=== PATIENT | female | born 1980 | race Caucasian/White ===

== ENCOUNTER → 2019-09-19 18:17 | Outpatient (CLI) | payer OTHER, SELFPAY ==
--- NOTE | 2019-09-19 18:23 | DI.MRI.S_ITS ---
PROCEDURE: MR HAND LT WO CON INDICATIONS: PAIN IN LEFT HAND TECHNIQUE: Noncontrast coronal T1 spin echo and T2 fast spin echo with fat saturation, axial proton density fast spin echo and T2 fast spin echo with fat saturation, sagittal T1 spin echo and STIR through the hand and fingers. COMPARISON: None. FINDINGS: Image quality: There is motion artifact limiting evaluation Bones: The bones are normally aligned. There is a small region of bone marrow edema along the dorsal aspect of the 3rd metatarsal head. The findings are suggestive of a bone contusion without a discrete fracture identified. Interphalangeal joints: The accessory and proper collateral ligaments appear intact. The volar plate plates appear grossly intact. The extensor central slips appear intact on sagittal images. Metacarpophalangeal joints: There is mild edema along the dorsal radial aspects of the 2nd and 3rd metacarpophalangeal joints with slight attenuation of the dorsal capsule. The findings are compatible with mild to capsular sprains. The accessory and proper collateral ligaments appear intact, as well as the volar plate and adjacent deep transverse metacarpal ligaments. The sagittal bands of the extensor sunshine appear normal. Extensor apparatus: The central slips insert normally on the middle phalangeal base. The conjoint and terminal tendons insert normally on the distal phalangeal bases. More proximal portions of the extensor tendons also appear normal. Flexor apparatus: The flexor digitorum superficialis and profundus tendons both appear intact. All annular and cruciform pulleys appear intact, without adjacent soft tissue edema. Soft tissues: There is mild edema within the 1st and 2nd dorsal interosseous muscles adjacent to the 2nd and 3rd metacarpophalangeal joints suggestive of mild strains. No intramuscular masses identified. No ganglion cysts. IMPRESSION: 1. Mild edema at the dorsal radial aspect of the 2nd and 3rd metacarpophalangeal joints compatible with mild sprains of the dorsal capsules. There are associated mild strains of the 1st and 2nd dorsal interosseous muscles. 2. Small region of bone marrow edema in the 3rd metacarpal head dorsally likely representing a bone contusion without a discrete fracture identified. Dictated by: Eliecer Streeter M.D. on 09/20/2019 at 9:38 Approved by: Eliecer Streeter M.D. on 09/20/2019 at 9:56
== END ==
PROVIDERS: Visit Provider Physician Assistant
DX: M79.642 Pain in left hand (principal); M25.442 Effusion, left hand; S66.812A Strain of other specified muscles, fascia and tendons at wrist and hand level, left hand, initial encounter
CPT/HCPCS: 73218

== ENCOUNTER → 2021-02-18 14:48 | Outpatient (CLI) | payer OTHER, SELFPAY ==
--- NOTE | 2021-02-18 14:51 | DI.ECHO.S_ITS ---
[facility] +---------+ Hospital +---------+ : : [address] : [place] : : : : [id number] : : : : Phone: [phone]+ Echocardiogram Report + + :Name: FAUSTINO BRICE Study Date: 02/18/2021 Height: 63 in : :[facility] ReadingLocation: Weight: 175 lb : : Gender: Female BSA: 1.8 m2 : :: 1980 Age: 41 yrs BP: 129/94 mmHg: :Reason For Study: GENERAL ENCOUNTER FOR ADULT MEDICAL : :EXAMINATION : :Ordering Physician: RADHA, : :ABDOULAYE Performed By: Vidya Moscoso : :Referring: ABDOULAYE GARCIA : + + Interpretation Summary Normal echo study. Procedure: A two-dimensional transthoracic echocardiogram with color flow and Doppler was performed. The study quality was technically adequate. There is no prior echocardiogram noted for this patient. The patient was in sinus rhythm with heart rates between 69-86 bpm during the exam. Left Ventricle: The left ventricle is normal in size and wall thickness. The ejection fraction is estimated to be 60-65%. Left ventricular wall motion is normal. Diastolic parameters suggest probable normal left ventricular diastolic function and normal filling pressures. Right Ventricle: The right ventricle is normal in size and function. Atria: The left atrial size is normal. Right atrial size is normal. There is no Doppler evidence for an interatrial shunt. Mitral Valve: The mitral valve is normal in structure and function. There is no mitral regurgitation noted. Aortic Valve: The aortic valve is trileaflet. The aortic valve opens well. There is no aortic valve stenosis. No aortic regurgitation is present. Tricuspid Valve: The tricuspid valve is normal in structure and function. Pulmonary artery pressures cannot be estimated because of the lack of a measurable TR jet velocity but the IVC suggests a CVP of around 3 mmHg. No tricuspid regurgitation. Pulmonic Valve: The pulmonic valve is not well seen, but is grossly normal. There is trace pulmonic regurgitation. Great Vessels: The aortic root is normal size. The dimensions of the ascending aorta are normal. The IVC is of normal diameter and collapses greater than 50% with a sniff. This suggests a low right atrial pressure of 3 mm Hg. Pericardium/ Pleura There is no pericardial effusion. There is no pleural effusion. MMode/2D Measurements & Calculations LVIDd: 4.8 cm LVOT diam: 2.1 cm LVIDs: 3.1 cm Ao root diam: 3.1 cm FS: 34.9 % asc Aorta Diam: 3.1 cm EPSS: 0.82 cm Ao Arch Diam (Prox Trans): 2.5 cm IVSd: 0.86 cm LVPWd: 0.80 cm LV lieberman. diameter/BSA (cm/m^2): 2.6 LV sys. diameter/BSA (cm/m^2): 1.7 LA A2 area: 22.1 cm2 RA long axis: 4.9 cm LA A4 area: 20.6 cm2 RA area: 16.1 cm2 LA length (vol): 5.3 cm RA vol: 45.1 ml LA vol: 72.6 ml RA : 24.7 ml/m2 LA vol index: 39.7 ml/m2 IVC diam: 1.1 cm TAPSE: 2.4 cm Doppler Measurements & Calculations Ao V2 max: 142.6 cm/sec LVOT Max Thuan: 99.0 cm/sec Ao V2 mean: 107.7 cm/sec LV V1 max P.9 mmHg Ao max P.1 mmHg LV V1 VTI: 21.7 cm Ao mean P.9 mmHg SACHIN(I,D): 2.7 cm2 Ao V2 VTI: 28.3 cm SACHIN(V,D): 2.5 cm2 sev ratio: 0.77 SACHIN indexed to BSA (cm^2/m^2): 1.5 MV E max thuan: 84.6 cm/sec PA V2 max: 88.3 cm/sec MV A max thuan: 59.1 cm/sec PA V2 mean: 62.1 cm/sec MV E/A: 1.4 PA mean P.7 mmHg Med Peak E' Thuan: 10.2 cm/sec PA pr(Accel): 25.9 mmHg E/E' med: 8.3 Lat Peak E' Thuan: 12.3 cm/sec E/E' lat: 6.9 E/e' average: 7.6 MV dec time: 0.24 sec SV(LVOT): 77.5 ml Electronically signed by: Uma Jacques on Reading Physician:02/18/2021 11:44 PM
== END ==
PROVIDERS: Visit Provider Orthopaedic Surgery
DX: Z00.00 Encounter for general adult medical examination without abnormal findings (principal)
CPT/HCPCS: 93306